=== PATIENT | female | born 1955 | race African-American/Black ===

== ENCOUNTER → 2017-04-16 | Outpatient (REF) | payer OTHER ==
[2017-04-16 13:50] LABS: ALBUMIN/GLOBULIN RATIO 1.25 (1.00-1.93); ALKALINE PHOSPHATASE 77 U/L (45-117); ALT/SGPT 42 U/L (12-78); ANION GAP 6 MEQ/L (8-16); AST/SGOT 27 U/L (15-37); BILIRUBIN,TOTAL 0.9 MG/DL (0.2-1.0); BLOOD UREA NITROGEN 14 MG/DL (7-18); CALCIUM LEVEL 9.2 MG/DL (8.8-10.2); CARBON DIOXIDE LEVEL 30 MEQ/L (21-32); CHLORIDE LEVEL 105 MEQ/L (98-107); CHOLESTEROL LEVEL 149 MG/DL (<200); CREATININE FOR GFR 0.76 MG/DL (0.55-1.02); GLOMERULAR FILTRATION RATE > 60.0 (>45); GLUCOSE, FASTING 97 MG/DL (80-110); SODIUM LEVEL 141 MEQ/L (136-145); TOTAL PROTEIN 7.2 GM/DL (6.4-8.2); TRIGLYCERIDES LEVEL 63 MG/DL (<150)
== END ==
LOC: M LABDRAW1 11:41
PROVIDERS: ATTEND Emergency Medicine
DX: I10 Essential (primary) hypertension (principal); E78.2 Mixed hyperlipidemia; E55.9 Vitamin D deficiency, unspecified; R73.01 Impaired fasting glucose

== ENCOUNTER → 2017-10-29 | Outpatient (REF) | payer OTHER ==
[2017-10-29 15:52] LABS: ALBUMIN/GLOBULIN RATIO 1.18 (1.00-1.93); ALKALINE PHOSPHATASE 79 U/L (45-117); ALT/SGPT 31 U/L (12-78); ANION GAP 9 MEQ/L (8-16); AST/SGOT 20 U/L (7-37); BILIRUBIN,TOTAL 0.9 MG/DL (0.2-1.0); BLOOD UREA NITROGEN 12 MG/DL (7-18); CALCIUM LEVEL 9.5 MG/DL (8.8-10.2); CARBON DIOXIDE LEVEL 28 MEQ/L (21-32); CHLORIDE LEVEL 106 MEQ/L (98-107); CHOLESTEROL LEVEL 159 MG/DL (<200); CREATININE FOR GFR 0.75 MG/DL (0.55-1.02); GLOMERULAR FILTRATION RATE > 60.0 (>45); GLUCOSE, FASTING 94 MG/DL (80-110); POTASSIUM SERUM 4.4 MEQ/L (3.5-5.1); SODIUM LEVEL 143 MEQ/L (136-145); TOTAL PROTEIN 7.4 GM/DL (6.4-8.2); TRIGLYCERIDES LEVEL 68 MG/DL (<150)
== END ==
LOC: M LABDRAW1 11:23
PROVIDERS: ATTEND Emergency Medicine
DX: I10 Essential (primary) hypertension (principal); E78.2 Mixed hyperlipidemia; E55.9 Vitamin D deficiency, unspecified; R73.01 Impaired fasting glucose

== ENCOUNTER → 2018-05-06 | Outpatient (REF) | payer OTHER ==
[2018-05-06 12:22] LABS: ALBUMIN 3.9 GM/DL (3.2-5.2); ALBUMIN/GLOBULIN RATIO 1.08 (1.00-1.93); ALKALINE PHOSPHATASE 80 U/L (45-117); ALT/SGPT 31 U/L (12-78); ANION GAP 7 MEQ/L (8-16); AST/SGOT 20 U/L (7-37); BILIRUBIN,TOTAL 0.9 MG/DL (0.2-1.0); BLOOD UREA NITROGEN 14 MG/DL (7-18); CALCIUM LEVEL 9.8 MG/DL (8.8-10.2); CARBON DIOXIDE LEVEL 31 MEQ/L (21-32); CHLORIDE LEVEL 103 MEQ/L (98-107); CHOLESTEROL LEVEL 178 MG/DL (<200); CHOLESTEROL RISK RATIO 3.068 (<5); CREATININE FOR GFR 0.79 MG/DL (0.55-1.30); GLOMERULAR FILTRATION RATE > 60.0 (>45); GLUCOSE, FASTING 102 MG/DL (70-100); HDL CHOLESTEROL 58 MG/DL (>40); LDL CHOLESTEROL 101.6 MG/DL (<100); NON-HDL-C 120 MG/DL; POTASSIUM SERUM 4.1 MEQ/L (3.5-5.1); SODIUM LEVEL 141 MEQ/L (136-145); TOTAL PROTEIN 7.5 GM/DL (6.4-8.2); TRIGLYCERIDES LEVEL 92 MG/DL (<150)
[2018-05-06 12:41] LABS: TOTAL 25(OH) VITAMIN D 25.5 NG/ML (30.0-100.0)
[2018-05-06 13:04] LABS: ESTIMATED AVERAGE GLUCOSE 120 MG/DL (60-110); HEMOGLOBIN A1c 5.8 %
== END ==
LOC: M LABDRAW1 09:47
DX: E78.2 Mixed hyperlipidemia (principal); E55.9 Vitamin D deficiency, unspecified; R73.01 Impaired fasting glucose

== ENCOUNTER → 2019-01-12 | Outpatient (REF) | payer OTHER ==
[2019-01-12 16:42] LABS: ALBUMIN 3.9 GM/DL (3.2-5.2); ALT/SGPT 27 U/L (12-78); BILIRUBIN,TOTAL 0.7 MG/DL (0.2-1.0); BLOOD UREA NITROGEN 10 MG/DL (7-18); CALCIUM LEVEL 9.2 MG/DL (8.8-10.2); CARBON DIOXIDE LEVEL 32 MEQ/L (21-32); CHLORIDE LEVEL 106 MEQ/L (98-107); CHOLESTEROL LEVEL 177 MG/DL (<200); CHOLESTEROL RISK RATIO 2.765 (<5); CREATININE FOR GFR 0.77 MG/DL (0.55-1.30); GLOMERULAR FILTRATION RATE > 60.0 (>45); GLUCOSE, FASTING 86 MG/DL (70-100); HDL CHOLESTEROL 64 MG/DL (>40); LDL CHOLESTEROL 97 MG/DL (<100); NON-HDL-C 113 MG/DL; POTASSIUM SERUM 4.4 MEQ/L (3.5-5.1); SODIUM LEVEL 142 MEQ/L (136-145); TOTAL PROTEIN 7.3 GM/DL (6.4-8.2); TRIGLYCERIDES LEVEL 79 MG/DL (<150)
[2019-01-12 16:46] LABS: TOTAL 25(OH) VITAMIN D 36.9 NG/ML (30.0-100.0)
[2019-01-12 16:50] LABS: HEMOGLOBIN A1c 6.2 %
== END ==
LOC: M LABDRAW1 12:18
PROVIDERS: ATTEND Physician Assistant
DX: I10 Essential (primary) hypertension (principal); E78.2 Mixed hyperlipidemia; E55.9 Vitamin D deficiency, unspecified; R73.01 Impaired fasting glucose

== ENCOUNTER → 2019-07-11 | Outpatient (REF) | payer MEDICARE, OTHER ==
[2019-07-11 15:04] LABS: HEMOGLOBIN A1c 6.4 %
[2019-07-11 15:08] LABS: BLOOD UREA NITROGEN 17 MG/DL (7-18); CALCIUM LEVEL 9.4 MG/DL (8.8-10.2); CARBON DIOXIDE LEVEL 33 MEQ/L (21-32); CHLORIDE LEVEL 105 MEQ/L (98-107); CREATININE FOR GFR 0.72 MG/DL (0.55-1.30); GLOMERULAR FILTRATION RATE > 60.0 (>45); GLUCOSE, FASTING 94 MG/DL (70-100); POTASSIUM SERUM 4.2 MEQ/L (3.5-5.1); SODIUM LEVEL 142 MEQ/L (136-145)
== END ==
LOC: M LABDRAW1 13:59
PROVIDERS: ATTEND Physician Assistant
DX: R73.01 Impaired fasting glucose (principal)

== ENCOUNTER → 2021-02-06 | Outpatient (CLI) | payer MEDICARE, OTHER ==
--- NOTE | 2021-02-06 10:44 | REP ---
INDICATION: PAIN, DECREASED ROM COMPARISON: None. TECHNIQUE: Internal rotation, external rotation, and Y view of the right and left shoulder. FINDINGS: Right shoulder demonstrates increased sclerosis to the glenoid with joint space narrowing and subtle heterogeneity and subchondral cystic changes to the humeral head. The acromioclavicular joint appears normal. The subacromial space is decreased to approximately 8 mm. Left shoulder demonstrates suspected partial resection to the distal clavicle along with evidence for prior medial clavicular fracture repair. The glenoid demonstrates increased sclerosis with significant joint space narrowing/obliteration as well as subchondral cystic changes and heterogeneity to the humeral head with inferior osteophyte formation. IMPRESSION: Moderate to advanced osteoarthritic changes to the bilateral shoulders (left greater than right). <Electronically signed by Misha Oconnor > 02/06/21 [id number]
== END ==
LOC: M WUC 10:19
PROVIDERS: ATTEND Registered Nurse
DX: M19.011 Primary osteoarthritis, right shoulder (principal); M19.012 Primary osteoarthritis, left shoulder; M25.512 Pain in left shoulder; M25.511 Pain in right shoulder

== ENCOUNTER → 2021-03-04 | Outpatient (CLI) | payer MEDICARE, OTHER ==
--- NOTE | 2021-03-04 19:06 | REP ---
INDICATION: OSTEOARTHRITIS, LEFT SHOULDER. COMPARISON: None TECHNIQUE: Coronal oblique T1 and fat suppressed T2. Sagittal oblique fat suppressed T2. Axial [id number] and T2 FLASH. FINDINGS: The acromioclavicular joint is somewhat widened and there is the appearance of previous distal clavicular me, however, I have been given no surgical history. The acromion process is type 2. There is fluid in the subacromial space surrounding the supraspinatus tendon. Patchy and linear T2 hyper signal is seen throughout the supraspinatus tendon also seen with evidence of sub bursal and articular surface irregularity and fraying. There is atrophy of the supraspinatus muscle. Mild irregularity and T2 hyper signal is seen in both infraspinatus and teres minor tendons with mild T2 hyper signal seen within a somewhat redundant subscapularis tendon. There is a slight glenohumeral joint effusion. There is a 2 cm sized focal area of signal void with in the effusion anteriorly. There is glenohumeral joint space asymmetric narrowing with prominent humeral head and glenoid marginal osteophytosis. Multifocal subchondral T2 hyper signal is seen in both the humeral head and glenoid. The glenoid labrum appears minimus. IMPRESSION: 1. AC joint changes as described above correlate clinically. 2. Advanced supraspinatus tendinitis/tendinosis. Partial full-thickness tear cannot be ruled out. 3. Evidence of infraspinatus, teres minor, and subscapularis tendinitis. 4. Advanced glenohumeral joint arthritic changes as described above. 5. Joint effusion with calcifications within the joint fluid as described above. 6. There is likely an element of labral degeneration since it appears minimus. <Electronically signed by Larry Mario > 03/04/21 [id number]
== END ==
LOC: M RAD 16:37
PROVIDERS: ATTEND Orthopaedic Surgery Sports Medicine
DX: M19.012 Primary osteoarthritis, left shoulder (principal); M25.412 Effusion, left shoulder

== ENCOUNTER → 2021-03-29 | Outpatient (CLI) | payer MEDICARE, OTHER ==
[~2021-03-29] MED LIST: ATEN50TA2 PO; ATOR40TA75 PO; MULTTAB86 PO; SM HTAB3 PO
== END ==
LOC: M LABSMTC 12:16
PROVIDERS: ATTEND Anesthesiology
DX: Z20.828 Contact with and (suspected) exposure to other viral communicable diseases (principal); Z11.59 Encounter for screening for other viral diseases

== ENCOUNTER 2021-04-03 06:11 | Day surgery (SDC) | payer MEDICARE, OTHER ==
[2021-04-03] VITALS (8 sets, daily range): BP systolic 153–177; BP diastolic 90–102
[~2021-04-03] VITALS: Ht 152.4 cm; Wt 68.0 kg
[~2021-04-03 06:11] MED LIST changes: +ceFAZolin SOD 2 GM in IV 1 EA IV ONE
[2021-04-03] MEDS ORDERED: TRANEXAMIC ACID 100 MG/ML 10ML VIAL As Ordered ONE (07:00)
[2021-04-03] MEDS ORDERED: BUPIVACAINE HCL 0.25% 10ML VIAL As Ordered ONE (07:00)
[2021-04-03] MEDS ORDERED: ceFAZolin 1GM VIAL (J0690 PER 500MG) As Ordered ONE (07:01)
[2021-04-03] MEDS ORDERED: EPINEPHrine INJ 1 MG/ML 1ML AMP As Ordered ONE (07:01)
[2021-04-03] MEDS ORDERED: BUPIVACAINE LIPOSOME/PF 1.3% 20ML VIAL (13.3MG/ML)(EXPAREL)(C9290 PER1MG) As Ordered ONE ×2 (07:01→08:02)
[2021-04-03] MEDS ORDERED: propofoL 200 MG/20 ML VIAL As Ordered ONE (07:15)
[2021-04-03] MEDS ORDERED: ROCURONIUM BROMIDE 50 MG/5 ML VIAL As Ordered ONE (07:15)
[2021-04-03] MEDS ORDERED: LIDOCAINE 2% 100MG/5ML SDV (FOR ANES.) As Ordered ONE (07:15)
[2021-04-03] MEDS ORDERED: fentaNYL 250 MCG/5 ML INJECTION (J3010) As Ordered ONE (07:15)
[2021-04-03] MEDS ORDERED: MIDAZOLAM INJ 2MG/2ML VIAL (J2250 PER 1MG) As Ordered ONE (07:16)
[2021-04-03] MEDS ORDERED: LACRILUBE (AKWA TEARS) OPHTH OINT 3.5 GM As Ordered ONE (07:24)
[2021-04-03] MEDS ORDERED: dexameTHASONE 4 MG/ML 1ML VIAL (J1100 PER 1MG) As Ordered ONE (08:48)
[2021-04-03] MEDS ORDERED: ACETAMINOPHEN 1000MG 100ML IV BTL (OFIRMEV) (J0131 PER 10MG) As Ordered ONE (08:48)
[2021-04-03] MEDS ORDERED: ONDANSETRON 4MG/2ML VIAL As Ordered ONE (08:48)
[2021-04-03] MEDS ORDERED: SUGAMMADEX SODIUM 500 MG/5 ML VIAL (BRIDION) As Ordered ONE (08:51)
[2021-04-03] MEDS ORDERED: PHENYLephrine 500MCG 5ML (100MCG/ML) SYRINGE As Ordered ONE (08:52)
[2021-04-03] MEDS ORDERED: HYDROmorphone HCL 2 MG/ML 1ML VIAL (J1170) As Ordered ONE (09:01)
[2021-04-03] MEDS ORDERED: DESFLURANE 240 ML INHALANT As Ordered ONE (09:56)
[2021-04-03] MEDS ORDERED: VANCOMYCIN 1000MG/20ML VIAL As Ordered ONE (10:37)
[2021-04-03] MEDS ORDERED: fentaNYL 100 MCG/2 ML INJECTION (J3010) IV PRN (11:30)
[2021-04-03] MEDS ORDERED: LR 1,000 ML IV SCH (11:30)
[2021-04-03] MEDS ORDERED: ONDANSETRON 4MG/2ML VIAL IV PRN (11:30)
[2021-04-03] MEDS ORDERED: HYDROMORPHONE HCL 0.5 MG/ 0.5 ML SYRINGE (J1170 PER 1) IV PRN (11:30)
[2021-04-03] MEDS ORDERED: METOCLOPRAMIDE INJ 10MG/2ML VIAL (J2765 PER 1) IV PRN (11:30)
[2021-04-03] MEDS ORDERED: oxyCODONE 5MG TAB PO PRN (11:30)
[2021-04-03] MEDS ORDERED: MORPHINE 2 MG/ML 1ML VIAL (J2270) IV PRN (11:35)
[2021-04-03] MEDS ORDERED: LABETALOL 100MG/20ML VIAL As Ordered ONE (12:35)
[2021-04-03] MEDS: LABETALOL 100MG/20ML VIAL IV PRN ×2 (12:35→12:45)
[2021-04-03] MEDS: LR 1,000 ML IV SCH ×2 (15:06→19:35)
[2021-04-03] MEDS: ONDANSETRON 4MG/2ML VIAL IV PRN ×2 (15:06→21:36)
--- NOTE | 2021-04-03 15:16 | ROOPDOC ---
[facility] Report Of Operation Report of Operation DATE OF PROCEDURE: 04/03/21 PREPROCEDURE DIAGNOSES: Left shoulder osteoarthritis. POSTPROCEDURE DIAGNOSES: Same. PROCEDURE: Left total shoulder arthroplasty and biceps tenodesis (BLUM SMR total shoulder TT hybrid glenoid, 14 size humerus stem, medium trauma body, 42mm head, 8mm eccentric) SURGEON: Dr. Richy Hernandez MD PUBLIC AFFAIRS DIRECTOR: MD Samanta ANESTHESIA: Gen. anesthesia Dr Murphy. ESTIMATED BLOOD LOSS: Approximately 100 mL. COMPLICATIONS: None. REMARKS: None. PROCEDURE NOTE: This 66-year-old female had signs and symptoms with left shoulder osteoarthritis. We discussed the pros and cons risks and benefits of left total shoulder arthroplasty. She wished to proceed a marked left upper extremity. She had no further questions.. DESCRIPTION OF PROCEDURE: The patient was brought to the operating room theater. They were administered a general anesthetic. They were administered 2 g of IV Ancef and 1 g of IV tranexamic acid prior to the start of the case. Patient was placed in the beachchair positioner supine set up at a 50 angle. All bony prominences were padded. Spider arm santos used to the patient's left side. Limb was prepped and draped in the usual sterile fashion with chlorhexidine prep solution allowing over 3 minutes drying time prior to draping. SCDs used on the legs. Preoperative timeout was performed to confirm the site patient and surgery. I began by making a standard deltopectoral incision. I carried the dissection down through skin and subcutaneous tissue achieving meticulous hemostasis. I incised the interval and retracted the cephalic vein laterally. I incised on the lateral side of the conjoined tendon and retracted this medially. I placed a Theodore shoulder retractor. I placed Arthrex #2 FiberWire stay sutures in the subscapularis and performed a tenotomy. I identified the long head of the biceps and performed a biceps tenodesis. I incised through the rotator interval. I delivered the humeral head in external rotation. I removed any osteophytes. I used the BLUM intramedullary guide. Made my cut at 20 retroversion. I remove the humeral head and sized this to be approximate size 42 mm I turned my attention to the glenoid. I placed the center guidewire. I used the peripheral reamer to achieve a bleeding surface of bone. I then used the small center reamer followed by the superior and inferior drill holes. Used pulse irrigation to thoroughly irrigate the wound and the bone. I prepared and mixed cement which I placed superiorly and inferiorly. I impacted into place the baseplate SMR shoulder TD hybrid glenoid size small baseplate. I then turned my attention to humeral side. Broaching was completed with a 14- sized broach this achieved good rotational and superior and inferior stability. I chose this along with the trauma body assembled this on the back table and impacted it in place at 20 retroversion. I then trialed numerous times up to size 42 mm head with 8 mm eccentricity placed inferiorly. Rotator cuff tendon appeared intact throughout the case with no obvious impingement on the component. At this point I attempted to reduce the glenohumeral joint however this levered on the baseplate and it became loose and it was obvious that it was slightly loose to begin with. As such I turned my attention back to the glenoid side after removing the head. I re-reamed ensuring good contact with the reamer slightly ream down the high anterior side. She had a medial attachment of the anterior deltoid fibers making it a bit difficult. I redrilled the central peg as well as the superior and inferior hole. I then cleaned the TT hybrid glenoid and re-impacted this into place. I achieved very solid purchase and a better fit with no levering or rocking phenomenon. I then re-impacted, after cleaning the trunnion, the head onto the trauma body of the humerus side. I reduced the shoulder. This had good anterior to posterior translation 50% with full range of motion and no impingement. I thoroughly irrigated the wound. I used vancomycin powder. I closed the rotator interval as well as repairing the subscapularis tenotomy with #2 FiberWire Arthrex suture. I closed the subcutaneous tissues with 2-0 Vicryl sutures and skin with Prineo dressing. Patient was woken up from the general anesthetic and transferred off the operating room table. The patient was taken to recovery room in stable condition. All sponge and needle instrument counts were correct. No complications. Postoperative plan to discharge the patient home when comfortable. Be in a sling for 2-4 weeks. Start immediate pendulum exercises. No external rotation over 20 and no forward elevation beyond 90. Follow-up in the office in 2 weeks' time. Patient understands and would not like a prescription for oral narcotics. . RICHY HERNANDEZ MD April 03, 2021 15:16
[2021-04-03] MEDS: ACETAMINOPHEN TAB 650MG DOSE (2X325MG) PO PRN ×2 (17:50→22:33)
[2021-04-03] MEDS ORDERED: atenoloL 50 MG TAB PO SCH (21:00)
[2021-04-03] MEDS ORDERED: ATORVASTATIN 20 MG TAB PO SCH (21:00)
--- NOTE | 2021-04-03 22:38 | CR.PDOC ---
General Date of Consultation: April 03, 2021 Referring Provider: JACLYN HERNANDEZ MD Primary Care Physician Wanda BLACKWELL Attending Physician: JACLYN HERNANDEZ MD Consultation TIME OF SERVICE: 1135pm REASON FOR CONSULT: uncontrolled HTN HISTORY OF PRESENT ILLNESS: is a 66 yr old F who underwent left total shoulder arthroplasty to manage severe OA earlier on today. She was diagnosed with HTN about 5 yrs ago, and reports having the dose of atenolol increased recently. Despite taking her atenolol last night her BP was as high as 184/84 at 11:10AM before her procedure. Despite receiving 5mg of IV labetalol at around 12:45 PM her SBP has remained elevated. The patient currently denies having severe shoulder pain. She also denies feeling dizzy, having chest pain or dyspnea. REVIEW OF SYSTEMS: 12-point review of systems negative except as listed in HPI PAST MEDICAL/ SURGICAL HISTORY: Essential HTN, Scoliosis, OA, L collar bone surgery, left shoulder arthroplasty, denies having DM SOCIAL HISTORY: she is a , doesnt smoke and lives with her FAMILY HISTORY: Mother HTN and CV ALLERGIES: Please see below. HOME MEDICATIONS: Please see below. PHYSICAL EXAMINATION: Date Time Temp Pulse Resp B/P (MAP) Pulse Ox O2 Delivery O2 Flow Rate FiO2 04/04/21 02:15 146/88 (107) 04/04/21 02:05 99.2 87 16 176/96 (122) 96 Room Air 04/03/21 23:12 89 175/96 04/03/21 22:00 98.7 89 18 175/96 (122) 97 Room Air 04/03/21 21:36 89 175/96 04/03/21 18:10 97.7 84 18 177/102 (127) 98 Room Air 04/03/21 17:10 97.6 80 18 171/97 (121) 97 Room Air 04/03/21 17:10 97.6 80 18 171/97 (121) 97 Room Air 04/03/21 16:10 97.4 85 18 168/98 (121) 96 Room Air 04/03/21 16:10 97.4 85 18 168/98 (121) 96 Room Air 04/03/21 15:10 97.0 74 18 168/98 (121) 96 Room Air 04/03/21 15:10 97.0 74 18 168/98 (121) 96 Room Air 04/03/21 14:10 96.9 74 18 153/90 (111) 93 Room Air 04/03/21 14:00 96.9 74 20 153/90 (111) 93 Room Air 04/03/21 13:40 97.5 87 157/93 (114) 94 Room Air 04/03/21 13:10 97.1 78 18 142/81 (101) 97 Room Air 04/03/21 13:05 151/88 (109) 04/03/21 13:00 80 18 151/89 (109) 95 Room Air 04/03/21 12:55 154/84 (107) 04/03/21 12:50 156/80 (105) 04/03/21 12:45 79 18 175/85 (115) 95 Room Air 04/03/21 12:40 89 18 153/70 (97) 96 Room Air 04/03/21 12:30 92 18 172/82 (112) 97 Room Air 04/03/21 12:15 97.8 87 18 186/85 (118) 97 Room Air 04/03/21 12:00 85 18 161/89 (113) 94 Room Air 04/03/21 11:45 87 18 148/82 (104) 100 Room Air 04/03/21 11:30 79 18 146/88 (107) 100 Nasal Cannula 1.0 04/03/21 11:20 95 18 195/93 (127) 99 Nasal Cannula 2.0 04/03/21 11:15 84 18 170/79 (109) 98 Nasal Cannula 2.0 04/03/21 11:10 97.5 83 18 184/84 (117) 99 Nasal Cannula 2.0 04/03/21 07:22 150/92 (111) 04/03/21 06:33 97.5 82 18 99 Room Air GENERAL APPEARANCE: well nourished and developed /NAD HEENT: EOMI CARDIOVASCULAR: RRR/NMRG LUNGS: CTAB on RA MUSCULOSKELETAL: L arm in sling NEUROLOGICAL: CN 2-12 grossly intact /speech not dysarthric PSYCHIATRIC: A&O x 3 /able to understand and follow all commands LABORATORY DATA: n/a IMAGING: MRI L shoulder 03/04/21 IMPRESSION: 1. AC joint changes as described above correlate clinically. 2. Advanced supraspinatus tendinitis/tendinosis. Partial full-thickness tear cannot be ruled out. 3. Evidence of infraspinatus, teres minor, and subscapularis tendinitis. 4. Advanced glenohumeral joint arthritic changes as described above. 5. Joint effusion with calcifications within the joint fluid as described above. 6. There is likely an element of labral degeneration since it appears minimus. MICROBIOLOGY: 03/29/21 COVID neg ASSESSMENT: is a 66 yr old with HTN who underwent left shoulder arthroplasty to manage severe OA; we were consulted to manage her HTN. PLAN: 1 Uncontrolled HTN She denies being in pain Plan: start amlodipine 2.5mg QHS tonight / Ideally she should be on a CCB (ie amlodipine) and ACEI (ie Lisinopril) which based on the most recent studies is the combination of anti-hypertensive that individuals of descent tend to respond best to. I informed her of this fact but she appeared to be a bit hesitant to make abrupt changes to her regimen; nevertheless she agreed to continue with her atenolol and start a small dose of amlodipine. She has a blood pressure cuff at home which she hasnt been using; I encouraged her to keep a log of her BP and informed her that her target BP, based on the SPRINT trail is 120/80. We also discussed the importance of consuming a low salt diet and the roles of exercise and weight loss in improving blood pressure control. Rest, including DVT Px, per Primary team. Thank you for consulting us; we will continue to follow this patient along with you. Allergies Coded Allergies: ibuprofen (Verified Allergy, Unknown, swelling of mucous membranes, ) Home Medications Scheduled Atenolol (Atenolol) 50 Mg Tablet, 50 MG PO DAILY, (Reported) Atorvastatin Calcium (Atorvastatin Calcium) 40 Mg Tablet, 40 MG PO DAILY, (Reported) Multivitamin (Multi-Vitamin Daily) 1 Each Tablet, 1 TAB PO DAILY, (Reported) Multivitamin with Minerals (Hair, Skin and Nails) 1 Each Tablet, 1 TAB PO DAILY, (Reported) MIKEY ANSARI MD April 03, 2021 22:38
[2021-04-04] VITALS (7 sets, daily range): BP systolic 146–179; BP diastolic 79–96
[2021-04-04] MEDS: ONDANSETRON 4MG/2ML VIAL IV PRN (06:17)
[2021-04-04] MEDS: ACETAMINOPHEN TAB 650MG DOSE (2X325MG) PO PRN (06:17)
[2021-04-04] MEDS ORDERED: AMLO1TAB24 PO (06:40)
[2021-04-04] MEDS ORDERED: amLODIPine 5 MG TAB PO SCH (09:00)
[2021-04-04] MEDS ORDERED: PERCOCET 5MG/325MG TAB PO PRN (11:50)
--- NOTE | 2021-04-04 12:06 | IPNPDOC ---
Date Seen The patient was seen on 04/04/21. Progress Note SUBJECTIVE: patient was seen and examined at bedside this morning. . She is doing well, no acute events overnight. Moderate pain of the left shoulder after surgery. Patient has a chest pain, shortness of breath, nausea, vomiting, diarrhea, blurred vision or palpitations. She has no subjective fevers or chills. Discussed with her changes to her anti-hypertensive management. She prefers to continue with her atenolol and is willing to continue with newly prescribed amlodipine 5 mg. Admission blood pressure likely related to pain. We' ll start Percocet. OBJECTIVE PHYSICAL EXAMINATION: VITAL SIGNS: please see below General: NAD, comfortable HEENT: PERRLA, EOMI, sclerae clear Neck: supple, normal ROM, no JVD Respiratory: lungs CTAB, no wheeze, no rales, no crackles CVS: RRR, normal S1, S2, no murmurs Abdo: soft, no masses, no hepatosplenomegaly, BS+, no rebound tenderness Extremities: no edema, pulses 2+ MSK: Extremities sling Neuro: no focal neuro deficits, moving all 4 extremities, CN2-12 intact. Psych: calm, cooperative, AAO x 3 LABORATORY DATA, IMAGING STUDIES, MICROBIOLOGY: Please see below. DVT prophylaxis ordered?: SCDs, TEDs ASSESSMENT AND PLAN: 66-year-old female with history hypertension, underwent a left total shoulder arthroplasty for severe osteoarthritis on 04/03/21. She takes atenolol at home. Blood pressure was elevated as high as 184/84, remained elevated despite 5 mg every labetalol. Hospitalist service was consulted for assistance in management of hypertension. PROBLEMS: Hypertension: - takes atenolol 50 mg qhs - hesitant to change regimen, was started on amlodipine on 04/03/21 - BP remained high this morning prior to medical lab scientist - I suspect pain plays a component in her HTN at this time given recent surgery - added percocet 5 mg q6h prn - repeat BP 147/81 - will continue present regimen of amlodipine 5 mg and atenolol 50 mg qhs - pain control and DVT ppx on DC as per primary service. VS, I&O, 24H, Fishbone Vital Signs/I&O Vital Signs Date Time Temp Pulse Resp B/P (MAP) Pulse Ox O2 Delivery O2 Flow Rate FiO2 04/04/21 07:12 83 174/84 04/04/21 06:26 99.1 16 95 Room Air 04/03/21 11:30 1.0 I&O- Last 24 Hours up to 6 AM 04/04/21 06:00 Intake Total 1810 ml Output Total 0 ml Balance 1810 ml EVIE SHANNON MD April 04, 2021 12:06
[2021-04-04] MEDS ORDERED: OXYC1TAB23 PO (15:09)
--- NOTE | 2021-04-04 16:37 | IPN ---
PROGRESS NOTE DATE: 04/04/2021 CHIEF COMPLAINT: Postoperative day #1 left total shoulder arthroplasty HISTORY OF PRESENT ILLNESS: This 66-year-old female underwent uncomplicated left total shoulder arthroplasty. She had labile and high blood pressures. I consulted the hospitalist. They have been managing this. PHYSICAL EXAMINATION: A well-appearing 66-year-old female. She appears well. She is pleasant overall. VITAL SIGNS: Blood pressure 149/79, pulse rate 90. Incisions clean and dry, free of redness, swelling or drainage. Slightly diminished sensation throughout the hand, but hands are warm and well-perfused. She is wiggling her fingers appropriately. ASSESSMENT AND PLAN: This is a 66-year-old female who is ready to be discharged home. Hospitalist sent in a prescription for blood pressure medication as well as postoperative pain control, as she is experiencing a little more pain than she expected. She will follow up in the office in two weeks' time. She understands and had no further questions.
== END 2021-04-04 16:29 | disposition home or self-care (01) ==
LOC: M SDC 06:11 → EDSTATUS 07:30 → M MS5PR 13:20 → M SDC 04-04 16:29
PROVIDERS: ATTEND Orthopaedic Surgery Sports Medicine
DX: M19.012 Primary osteoarthritis, left shoulder (principal); I10 Essential (primary) hypertension; Z79.899 Other long term (current) drug therapy; Z88.8 Allergy status to other drugs, medicaments and biological substances
CPT/HCPCS: 23430; 23472; 88304; 88311; 96374; 96376; C1713; C1776; C9290; J0131; J0171; J0690; J1100; J1170; J2250; J2370; J2405; J2765; J3010; J3370

== ENCOUNTER → 2021-04-16 | Outpatient (CLI) | payer MEDICARE, OTHER ==
[~2021-04-16] MED LIST changes: +AMLO1TAB24 PO; +OXYC1TAB23 PO; -ceFAZolin SOD 2 GM in IV 1 EA IV ONE
--- NOTE | 2021-04-16 12:24 | REP ---
INDICATION: AAFTERCARE. COMPARISON: 02/06/2021 TECHNIQUE: Internal rotation, external rotation, axillary and Y-view of the left shoulder. FINDINGS: Patient is status post left shoulder arthroplasty. Acromioclavicular joint appears intact and stable. IMPRESSION: Findings consistent with recent shoulder replacement. <Electronically signed by Misha Oconnor > 04/16/21 [id number]
== END ==
LOC: M SOG 08:54
PROVIDERS: ATTEND Orthopaedic Surgery Sports Medicine
DX: Z47.89 Encounter for other orthopedic aftercare (principal)

== ENCOUNTER → 2021-06-25 | Outpatient (CLI) | payer MEDICARE, OTHER ==
--- NOTE | 2021-06-25 12:12 | REP ---
INDICATION: AFTERCARE FOLLOWING JOINT REPLACEMENT SURGERY. COMPARISON: 04/16/2021 TECHNIQUE: Multiple views FINDINGS: Total left shoulder prosthetic device is unchanged in alignment and position. There is no evidence of an acute fracture. Internal fixation plate and screws seen affixing a previously described left clavicle fracture. IMPRESSION: No significant change <Electronically signed by Larry Mario > 06/25/21 [id number]
== END ==
LOC: M SOG 09:54
PROVIDERS: ATTEND Orthopaedic Surgery Sports Medicine
DX: Z47.1 Aftercare following joint replacement surgery (principal)

== ENCOUNTER → 2021-06-25 | Outpatient (CLI) | payer MEDICARE, OTHER ==
[2021-06-25 13:31] LABS: BASO % 0.4 % (0.0-1.0); EOS # 0.1 10^3/uL (0.0-0.5); EOS % 2.3 % (0.0-3.0); HEMATOCRIT 44.3 % (36.0-47.0); HEMOGLOBIN 14.3 g/dl (12.0-15.5); LYMPH # 2.4 10^3/uL (1.5-5.0); LYMPH % 45.6 % (24.0-44.0); MEAN CORPUSCULAR HEMOGLOBIN 30.5 pg (27.0-33.0); MEAN CORPUSCULAR HGB CONC 32.3 g/dl (32.0-36.5); MEAN CORPUSCULAR VOLUME 94.5 fl (80.0-96.0); MONO # 0.5 10^3/uL (0.0-0.8); MONO % 9.3 % (2.0-8.0); NEUTROPHILS # 2.2 10^3/uL (1.5-8.5); NEUTROPHILS % 42.2 % (36.0-66.0); PLATELET COUNT, AUTOMATED 379 10^3/uL (150-450); RED BLOOD COUNT 4.69 10^6/uL (4.00-5.40); WHITE BLOOD COUNT 5.2 10^3/uL (4.0-10.0)
[2021-06-25 14:45] LABS: ERYTHROCYTE SEDIMENTATION RATE 9 mm/hr (0-30)
== END ==
LOC: M PLALAB 11:21
PROVIDERS: ATTEND Orthopaedic Surgery Sports Medicine
DX: Z47.89 Encounter for other orthopedic aftercare (principal)

== ENCOUNTER → 2021-08-15 | Outpatient (CLI) | payer MEDICARE, OTHER ==
--- NOTE | 2021-08-15 17:12 | REP ---
INDICATION: AFTERCARE FOLL JOINT REPLACEMENT SURGERY, R/O TEAR. COMPARISON: Radiographs 06/25/2021. TECHNIQUE: Axial CT performed with sagittal and coronal reconstruction images. FINDINGS: Total prosthesis of the left shoulder is noted. There is no evidence of acute fracture. No abnormal lucency is seen at the interface with adjacent bone. The prosthetic humeral head is high riding with minimal space between it and the adjacent acromion. Moderate size spur is seen at the medial aspect of the humeral neck. There is slight widening of the acromioclavicular interval. A plate and screws fuse the left sternoclavicular joint. There are diffuse degenerative changes of the lower cervical and upper thoracic spine with no compression fracture or malalignment. IMPRESSION: Total prosthesis of left shoulder, with high riding prosthetic humeral head. <Electronically signed by Adam Peraza > 08/15/21 [id number]
== END ==
LOC: M RAD 14:34
PROVIDERS: ATTEND Orthopaedic Surgery Sports Medicine
DX: Z96.612 Presence of left artificial shoulder joint (principal); Z47.1 Aftercare following joint replacement surgery

== ENCOUNTER → 2022-02-13 | Outpatient (CLI) | payer MEDICARE, OTHER | LOC: M SOG 11:14 | PROVIDERS: ATTEND Physician Assistant | DX: Z96.612 Presence of left artificial shoulder joint (principal) ==

== ENCOUNTER → 2022-05-14 | Outpatient (CLI) | payer MEDICARE, OTHER | LOC: M LABSMTC 09:29 | PROVIDERS: ATTEND Orthopaedic Surgery | DX: Z20.828 Contact with and (suspected) exposure to other viral communicable diseases (principal); Z11.59 Encounter for screening for other viral diseases ==

== ENCOUNTER 2023-08-28 08:36 | Day surgery (SDC) | payer MEDICARE, OTHER ==
[~2023-08-28] VITALS: Ht 157.5 cm; Wt 64.4 kg
[~2023-08-28 08:36] MED LIST changes: +BIOT1CAP2 PO; +NS 1,000 ML IV ONE; +OMEG10002 PO; +collagen
[2023-08-28] MEDS ORDERED: propofoL 200 MG/20 ML VIAL As Ordered ONE ×2 (10:02→10:32)
[2023-08-28 10:50] VITALS: TEMP 97.2
[2023-08-28 11:07] VITALS: BP 166/98; O2SAT 98
== END 2023-08-28 11:26 | disposition home or self-care (01) ==
LOC: M OPP 08:36
PROVIDERS: ATTEND Internal Medicine Gastroenterology
DX: Z12.11 Encounter for screening for malignant neoplasm of colon (principal); Z80.0 Family history of malignant neoplasm of digestive organs; D12.0 Benign neoplasm of cecum; D12.4 Benign neoplasm of descending colon; K63.5 Polyp of colon; K57.30 Diverticulosis of large intestine without perforation or abscess without bleeding; K64.8 Other hemorrhoids; Z88.6 Allergy status to analgesic agent; Z79.02 Long term (current) use of antithrombotics/antiplatelets; Z79.899 Other long term (current) drug therapy

== ENCOUNTER → 2023-09-16 | Outpatient (CLI) | payer MEDICARE, OTHER ==
[~2023-09-16] MED LIST changes: -NS 1,000 ML IV ONE
== END ==
LOC: M CARPUL 11:11
PROVIDERS: ATTEND Internal Medicine
DX: R01.1 Cardiac murmur, unspecified (principal)

== ENCOUNTER → 2023-11-11 | Outpatient (CLI) | payer MEDICARE, OTHER | LOC: M WUC 10:31 | PROVIDERS: ATTEND Internal Medicine | DX: M25.512 Pain in left shoulder (principal) ==

== ENCOUNTER → 2024-06-23 | Outpatient (REF) | payer MEDICARE, OTHER ==
[2024-06-23 13:29] LABS: APPEARANCE, URINE CLEAR (CLEAR); BACTERIA, URINE AUTO 1+ (NEGATIVE); BILIRUBIN, URINE AUTO NEGATIVE (NEGATIVE); BLOOD, URINE BLOOD 2+ (NEGATIVE); COLOR, URINE STRAW (YELLOW); GLUCOSE, URINE (UA) AUTO NEGATIVE (NEGATIVE); KETONE, URINE AUTO NEGATIVE (NEGATIVE); LEUKOCYTE ESTERASE, URINE AUTO NEGATIVE (NEGATIVE); NITRITE, URINE AUTO NEGATIVE (NEGATIVE); PROTEIN, URINE AUTO NEGATIVE (NEGATIVE); RBC, URINE AUTO 1 /HPF (0-3); SPECIFIC GRAVITY URINE AUTO 1.005 (1.002-1.035); SQUAMOUS EPITHELIAL CELL UR AU 1 /HPF (0-6); UROBILINOGEN, URINE AUTO 0.2 mg/dL (0.0-2.0); WBC, URINE AUTO 1 /HPF (0-3)
== END ==
LOC: M LAB REF 12:45
PROVIDERS: ATTEND Internal Medicine
DX: R31.9 Hematuria, unspecified (principal)

== ENCOUNTER → 2025-01-18 | Outpatient (CLI) | payer OTHER | LOC: M WUC 08:51 | PROVIDERS: ATTEND Internal Medicine | DX: M54.50 Low back pain, unspecified (principal) ==

== ENCOUNTER → 2025-05-31 | Outpatient (REF) | payer OTHER ==
[2025-05-31 12:48] LABS: APPEARANCE, URINE CLEAR (CLEAR); BACTERIA, URINE AUTO 1+ (NEGATIVE); BILIRUBIN, URINE AUTO NEGATIVE (NEGATIVE); BLOOD, URINE BLOOD 1+ (NEGATIVE); GLUCOSE, URINE (UA) AUTO NEGATIVE (NEGATIVE); KETONE, URINE AUTO NEGATIVE (NEGATIVE); LEUKOCYTE ESTERASE, URINE AUTO NEGATIVE (NEGATIVE); NITRITE, URINE AUTO NEGATIVE (NEGATIVE); PROTEIN, URINE AUTO NEGATIVE (NEGATIVE); RBC, URINE AUTO 0 /HPF (0-3); SPECIFIC GRAVITY URINE AUTO 1.003 (1.002-1.035); SQUAMOUS EPITHELIAL CELL UR AU 0 /HPF (0-6); UROBILINOGEN, URINE AUTO 0.2 mg/dL (0.0-2.0); WBC, URINE AUTO 0 /HPF (0-3)
== END ==
LOC: M LAB REF 12:06
PROVIDERS: ATTEND Internal Medicine
DX: R31.9 Hematuria, unspecified (principal)